=== PATIENT | female | born 1985 | race Caucasian/White ===

== ENCOUNTER 2019-12-13 17:51 | Emergency (ER) | payer MEDICAID, SELFPAY ==
[2019-12-13 17:55] VITALS: BP 121/77; PULSE 89; RESP 18; TEMP 37.1; O2SAT 100
--- NOTE | 2019-12-13 18:06 | W.ED.GENAD ---
Discharge Plan Disposition Patient Disposition: HOME Condition: Stable Discharge Details Chief Complaint: Sorethroat Clinical Impression: Influenza Primary Care Provider: Raj Moran ED Provider: Rell Covington Home Meds and New Rx's Prescriptions: New ondansetron 4 mg tablet,disintegrating 4 mg PO Q8H PRN (Reason: nausea and vomiting) Qty: 30 RF: 0 benzonatate 200 mg capsule 200 mg PO TID PRN (Reason: cough) Qty: 20 RF: 0 Continued acetaminophen 325 mg Tablet 650 mg PO ONCE PRNRF: 0 ascorbic acid (vitamin C) [Vitamin C] 500 mg Tablet 1,000 mg PO DAILY RF: 0 omeprazole 20 mg Tablet,Delayed Release (Dr/Ec) 20 mg PO DAILY RF: 0 cholecalciferol (vitamin D3) [Vitamin D3] 125 mcg (5,000 unit) Tablet 5,000 unit PO DAILY RF: 0 Discharge Instructions Instructions: Influenza (ED) Additional Instructions: based on your symptoms you likely have the flu. Because you are beyond 48 hours of symptoms tamiflu is not indicated take 1000mg tylenol and 600mg ibuprofen every 6 hours as needed for pain or discomfort or fevers if not better by tuesday follow up with your primary care provider return to the emergency department if you have worsening shortness of breath, persistent vomit or feel more ill Medical Decision Making 34 yo female with no chronic medical problems other than gerd comes in with cc of 3 days of body aches, subjective fevers chills and sore throat along with cough. She denies smoking, rarely drinks and no drug use no recent travel. She is speaking in full sentences, has clear rhinorrhea, normal tm's, clear lung sounds, no abdominal tenderness. Normal oropharynx with midline uvula, no pain over hyoid or restricted neck mvoements. Strep test is negative. Her symptoms seem most consistent with the flu but given she is over 48 hours of symptoms treatment not indicated so do not feel testing is indicated as she likely has a viral illness if this is negative. Advised to stay hydrated, prn tylenol and ibuprofen. Follow up with pcp next week if not improved and return precautions given Differential Diagnosis Differential Diagnosis: pharyngitis, influenza, strep HPI General Mode of arrival: ambulatory. Date/Time Provider Initiated Documentation: 12/13/19 17:56. Limitations to Documentation: no limitations. Information obtained by: patient. History of Present Illness 34 year old F presents to the emergency department with the chief complaint of sore throat, described as moderate, Patient started experiencing this day(s) (3) and it has been constant. No relieving factors improve symptom(s), No exacerbating factors reported . Related Data Home Medications Medication Instructions Recorded Confirmed acetaminophen 650 mg PO ONCE PRN 12/13/19 12/13/19 ascorbic acid (vitamin C) [Vitamin 1,000 mg PO DAILY 12/13/19 12/13/19 C] benzonatate 200 mg PO TID PRN #20 cap 12/13/19 cholecalciferol (vitamin D3) 5,000 unit PO DAILY 12/13/19 12/13/19 [Vitamin D3] omeprazole 20 mg PO DAILY 12/13/19 12/13/19 ondansetron 4 mg PO Q8H PRN #30 tab 12/13/19 Previous Rx's Medication Instructions Recorded benzonatate 200 mg PO TID PRN #20 cap 12/13/19 ondansetron 4 mg PO Q8H PRN #30 tab 12/13/19 Allergies Allergy/AdvReac Type Severity Reaction Status Date / Time No Known Allergies Allergy Unverified 12/13/19 17:58 General Stated Complaint: Sorethroat WENDY: 3 Review of Systems All systems reviewed & are unremarkable except as noted in HPI and below Constitutional Constitutional: Denies chills, Denies fever(s) and Denies weakness ENT Ears, Nose, Mouth, and Throat: Denies change in voice Cardiovascular Cardiovascular: Denies chest pain and Denies dyspnea Respiratory Respiratory: Denies cough and Denies dyspnea Gastrointestinal Gastrointestinal: Denies abdominal pain, Denies nausea and Denies vomiting Musculoskeletal Musculoskeletal: Denies joint swelling Neurologic Neurologic: Denies weakness [facility] Social History Smoking/Tobacco Use Status: Former Tobacco Use Alcohol Intake: current Alcohol Intake frequency: a few times a month Drug use: Never Substance use type: does not use Do you feel safe at home: Yes Do you feel safe in your relationship?: Yes Exam Const General: no acute distress Orientation: alert HENMT Head: normal to inspection Ears: external ears normal General nose exam: external nose normal Mouth: moist mucous membranes Eyes General: appearance normal, both eyes and all related structures Neck Neck: normal visual inspection Resp Effort & Inspection: normal respiratory effort and able to speak in complete sentences Cardio Rate: regular rate Skin General skin exam: no rashes or lesions noted Neuro General: alert and oriented x3 Extrem General: normal to inspection Psych Mental Status: mental status grossly normal Course Vital Signs Vital signs: Vital Signs Temperature 37.1 C 12/13/19 17:55 Pulse 89 12/13/19 17:55 Respiratory Rate 18 12/13/19 17:55 Blood Pressure 121/77 12/13/19 17:55 Pulse Oximetry 100 12/13/19 17:55 Temperature 37.1 C 12/13/19 17:55 Temperature Source Temporal Artery Scan 12/13/19 17:55 Pulse 89 12/13/19 17:55 Respiratory Rate 18 12/13/19 17:55 Respiratory Effort 12/13/19 18:01 Blood Pressure 121/77 12/13/19 17:55 Blood Pressure Position Sitting 12/13/19 17:55 Pulse Oximetry 100 12/13/19 17:55 Oxygen Delivery Method Room Air 12/13/19 17:55 Oxygen Flow Rate 0 12/13/19 17:55 Pain Level 5 12/13/19 17:55
== END 2019-12-13 18:45 | disposition home or self-care (01) ==
PROVIDERS: Emergency Provider Emergency Medicine; PCP Physician Assistant
DX: J11.1 Influenza due to unidentified influenza virus with other respiratory manifestations (principal)
CPT/HCPCS: 87880; 99283; 87081

== ENCOUNTER 2024-07-26 08:46 | Outpatient (CLI) | payer MEDICAID, SELFPAY ==
[2024-07-26 09:19] LABS: ALT 28 U/L (14-59); AST 17 U/L (15-37); Albumin 3.6 g/dL (3.4-5.0); Alkaline Phosphatase 83 U/L (46-116); Anion Gap 6.8 mmol/L (3-11); BUN 8 mg/dL (7-18); Bilirubin, Total 0.79 mg/dL (0.2-1.0); CO2 27.2 mmol/L (21.0-32.0); CREATININE 0.7 mg/dL (0.55-1.02); Calcium 8.9 mg/dL (8.5-10.1); Chloride 104 mmol/L (98-107); Estimated GFR 112.75 (mL/min/1.73m2); Glucose 95 mg/dL (74-106); Potassium 3.7 mmol/L (3.5-5.1); Sodium 138 mmol/L (136-145); Total Protein 7.2 g/dL (6.4-8.2)
[2024-07-26 09:28] LABS: Hemoglobin A1C 5.7 % (<5.7)
== END 2024-07-26 08:47 | disposition home or self-care (01) ==
LOC: LBO 08:46
PROVIDERS: PCP Physician Assistant; Visit Provider Physician Assistant
DX: Z13.220 Encounter for screening for lipoid disorders (principal); Z83.3 Family history of diabetes mellitus
CPT/HCPCS: 36415; 80053; 83036

== ENCOUNTER 2025-03-14 09:14 | Outpatient (REF) | payer MEDICAID, SELFPAY ==
[2025-03-14 21:33] LABS: Bacteria Packed HPF (Negative); Crystals Many Amorphous HPF (Negative); Epithelial Cells Few HPF (Negative); Mucus Negative (Negative); RBC 0-2 HPF (0-2); WBC 0-2 HPF (0-5)
[2025-03-14 21:35] LABS: C & S Indicated? C&S Done As Ordered
== END 2025-03-14 09:15 | disposition home or self-care (01) ==
LOC: NCHCN 09:14
PROVIDERS: PCP Physician Assistant; Visit Provider Physician Assistant
DX: R31.9 Hematuria, unspecified (principal); R82.89 Other abnormal findings on cytological and histological examination of urine
CPT/HCPCS: 81015; 87086

== ENCOUNTER 2025-04-29 19:01 | Outpatient (REF) | payer MEDICAID, SELFPAY ==
[2025-04-29 20:19] LABS: ALT 22 U/L (14-59); AST 21 U/L (15-37); Albumin 3.8 g/dL (3.4-5.0); Alkaline Phosphatase 72 U/L (46-116); Anion Gap 5.0 mmol/L (3-11); BUN 10 mg/dL (7-18); Bilirubin, Total 0.6 mg/dL (0.2-1.0); CO2 30.0 mmol/L (21.0-32.0); Calcium 9.1 mg/dL (8.5-10.1); Calculated LDL 79 mg/dL (<100); Chloride 107 mmol/L (98-107); Cholesterol 154 mg/dL (<200); Estimated GFR 112.75 (mL/min/1.73m2); Glucose 85 mg/dL (74-106); HDL Cholesterol 62 mg/dL (>or=50); Potassium 4.6 mmol/L (3.5-5.1); Sodium 142 mmol/L (136-145); TSH (W/Ref FT4) 7.34 uIU/mL (0.36-3.74); Total Protein 7.1 g/dL (6.4-8.2); Triglyceride 69 mg/dL (<150)
[2025-05-01 11:47] LABS: Hepatitis C Ab w Rflx HCV PCR Negative (Negative)
[2025-05-01 11:55] LABS: HIV-1/2 Ag & Ab Screen Negative (Negative)
== END 2025-04-29 19:02 | disposition home or self-care (01) ==
LOC: NCHCN 19:01
PROVIDERS: PCP Physician Assistant; Visit Provider Physician Assistant
DX: Z11.4 Encounter for screening for human immunodeficiency virus [HIV] (principal); E04.1 Nontoxic single thyroid nodule; Z13.220 Encounter for screening for lipoid disorders; Z11.59 Encounter for screening for other viral diseases
CPT/HCPCS: 80053; 80061; 86803; 87389; 84439; 84443